=== PATIENT | male | born 1960 | race Two or more races ===

== ENCOUNTER 2016-07-01 19:44 | Inpatient (IN) | payer BC, OTHER ==
[~2016-07-01] VITALS: Ht 162.6 cm; Wt 58.0 kg
[2016-07-01] MEDS ORDERED: ASPIRIN 325 MG TAB PO STA (23:01)
[2016-07-01] MEDS ORDERED: NITROGLYCERIN 2% 1 GM OINT PKT TD STA (23:01)
[2016-07-01] MEDS ORDERED: morphine 2 MG INJ IV STA (23:01)
[2016-07-01] MEDS ORDERED: ONDANSETRON 4 MG INJ IV STA (23:01)
[2016-07-01 23:30] LABS: ADD SCAN DIFF NO
[2016-07-01 23:32] LABS: BASOPHIL # 0.1 10^3/ul (0.0-0.1); BASOPHILS % 0.6 % (0.0-2.0); EOSINOPHILS # 0.4 10^3/ul (0.0-0.5); EOSINOPHILS % 3.9 % (0.0-7.0); HEMATOCRIT 45.7 % (42.0-52.0); LYMPHOCYTES # 3.1 10^3/ul (0.8-2.9); LYMPHOCYTES % 28.8 % (15.0-51.0); MEAN CORPUSCULAR HEMOGLOBIN 32.3 pg (29.0-33.0); MEAN CORPUSCULAR HGB CONC 32.8 g/dl (32.0-37.0); MEAN CORPUSCULAR VOLUME 98.3 fl (82.0-101.0); MEAN PLATELET VOLUME 10.1 fl (7.4-10.4); MONOCYTES % 9.5 % (0.0-11.0); NEUTROPHIL # 6.1 10^3/ul (1.6-7.5); NEUTROPHILS % 56.8 % (39.0-77.0); PLATELET COUNT 294 10^3/UL (140-415); RED BLOOD COUNT 4.65 10^6/ul (4.70-6.10); RED CELL DISTRIBUTION WIDTH 13.8 % (11.5-14.5); WHITE BLOOD COUNT 10.7 10^3/ul (4.8-10.8)
--- NOTE | 2016-07-01 23:34 | ERA ---
ER Documentation Chief Complaint Date/Time DATE: 07/01/16 TIME: 23:31 Chief Complaint chest pain , h/o stemi admitted at [facility] 05/11/16 HPI Patient is a 55-year-old male who speaks only Upper Sorbian. We have attempted to get a cell tender on the phone, the iPad, and the computer. Unfortunately we have been unsuccessful. Nobody here speaks Upper Sorbian. His does not speak Greek and neither does he. He checked in with chest pain. This is the limitation of what we can gather. He hands me some paperwork that states he had a STEMI in May. This is the only information I have at this time. ROS All systems reviewed and are negative except as per history of present illness. Allergies Allergies: Coded Allergies: No Known Allergy (Unverified , 07/01/16) Physical Exam Vitals Vital Signs Date Time Temp Pulse Resp B/P Pulse Ox O2 Delivery O2 Flow Rate FiO2 07/02/16 01:00 59 16 118/77 98 Room Air 07/01/16 19:54 98.1 81 20 159/72 97 Physical Exam Const: [] Well-developed well-nourished male sitting on the bed no acute distress Head: Atraumatic normocephalic Eyes: Normal Conjunctiva ENT: Normal External Ears, Nose and Mouth. Neck: Full range of motion..~ No meningismus. Resp: Clear to auscultation bilaterally, no tenderness palpation of the chest wall Cardio: Regular rate and rhythm, no murmurs Abd: Soft, non tender, non distended. Normal bowel sounds Skin: No petechiae or rashes Back: No midline or flank tenderness Ext: No cyanosis, or edema Neur: Awake and alert, moves all extremities equally, GCS of 15 Psych: Normal Mood and Affect Result Diagram: 07/01/16225407/01/162254 Results 24 hrs Laboratory Tests Test 07/01/16 22:55 White Blood Count 10.710^3/ul Red Blood Count 4.6510^6/ul Hemoglobin 15.0g/dl Hematocrit 45.7% Mean Corpuscular Volume 98.3fl Mean Corpuscular Hemoglobin 32.3pg Mean Corpuscular Hemoglobin Concent 32.8g/dl Red Cell Distribution Width 13.8% Platelet Count 48811^3/UL Mean Platelet Volume 10.1fl Neutrophils % 56.8% Lymphocytes % 28.8% Monocytes % 9.5% Eosinophils % 3.9% Basophils % 0.6% Nucleated Red Blood Cells % 0.0/100WBC Neutrophils # 6.110^3/ul Lymphocytes # 3.110^3/ul Monocytes # 1.010^3/ul Eosinophils # 0.410^3/ul Basophils # 0.110^3/ul Nucleated Red Blood Cells # 0.010^3/ul Prothrombin Time 11.7Sec Prothrombin Time Ratio 0.9 INR International Normalized Ratio 0.86 Activated Partial Thromboplast Time 32.9Sec Sodium Level 139mmol/L Potassium Level 4.1mmol/L Chloride Level 100mmol/L Carbon Dioxide Level 31mmol/L Anion Gap 12 Blood Urea Nitrogen 18mg/dl Creatinine 0.88mg/dl Glucose Level 94mg/dl Calcium Level 9.8mg/dl Total Bilirubin 0.1mg/dl Direct Bilirubin 0.00mg/dl Indirect Bilirubin 0.1mg/dl Aspartate Amino Transf (AST/SGOT) 24IU/L Alanine Aminotransferase (ALT/SGPT) 29IU/L Alkaline Phosphatase 91IU/L Troponin I < 0.012ng/ml B-Type Natriuretic Peptide 51PG/ML Total Protein 7.8g/dl Albumin 4.5g/dl Globulin 3.30g/dl Albumin/Globulin Ratio 1.36 Current Medications Medications (Trade) Dose Ordered Sig/Jayne Route PRN Reason Start Time Stop Time Status Last Admin Dose Admin Aspirin (Aspirin) 325 mg ONCE STAT PO 07/01/16 23:01 07/01/16 23:04 DC 07/01/16 23:38 Nitroglycerin (Nitroglycerin 2% Oint) 0.5 inch ONCE STAT TD 07/01/16 23:01 07/01/16 23:04 DC 07/01/16 23:37 Morphine Sulfate (morphine) 2 mg ONCE STAT IV 07/01/16 23:01 07/01/16 23:04 DC Ondansetron HCl (Zofran Inj) 4 mg ONCE STAT IV 07/01/16 23:01 07/01/16 23:04 DC Tramadol HCl (Ultram) 100 mg ONCE ONCE PO 07/02/16 01:30 07/02/16 01:31 DC 07/02/16 01:24 Procedures/MDM Differential includes but is not limited to chest pain, angina, chest wall pain , coronary disease EKG: Rate/Rhythm: Normal Sinus Rhythm at 75 bpm with no evidence of acute ischemia, arrhythmia, or ectopy noted QRS, ST, T-waves: No changes consistent w/ acute ischemia Impression: No evidence of ischemia or arrhythmia EKG: Rate/Rhythm: Normal Sinus Rhythm at 70 bpm without any evidence of acute ischemia, arrhythmia, or ectopy noted, this is a repeat EKG QRS, ST, T-waves: No changes consistent w/ acute ischemia Impression: No evidence of ischemia or arrhythmia Chest x-ray does not reveal any acute cardiopulmonary process 0230: Patient's pain is much improved. Given his recent ID I feel is most prudent to have him admitted for observation with serial enzymes. Departure Diagnosis: Primary Impression: Chest pain Qualified Code: R07.2 - Precordial pain Additional Impression: Coronary artery disease Qualified Code: I25.119 - Coronary artery disease involving cachil dehe coronary artery of cachil dehe heart with angina pectoris Condition: PAGE Mon Jul 01, 2016 23:34
--- NOTE | 2016-07-01 23:40 | RADRPT ---
PROCEDURE: XR Chest. CLINICAL INDICATION: Chest pain. TECHNIQUE: Single frontal view of the chest was obtained COMPARISON: None FINDINGS: The heart and mediastinum are within normal limits. Mild left lung base atelectasis. Right lung is clear. There is no pleural effusion or pneumothorax. IMPRESSION: Mild left lung base atelectasis. RPTAT: [facility] Physician Vita Date Time Electronically viewed and signed by Physician Vita on 07/01/2016 23:40 RS/
[2016-07-01 23:44] LABS: INR 0.86; PROTIME 11.7 Sec (12.2-14.2); PT RATIO 0.9
[2016-07-01 23:45] LABS: PARTIAL THROMBOPLASTIN TIME 32.9 Sec (25.0-35.0)
[2016-07-01 23:56] LABS: ALBUMIN 4.5 g/dl (3.3-4.9); CHLORIDE 100 mmol/L (97-110); POTASSIUM 4.1 mmol/L (3.5-5.1); SODIUM 139 mmol/L (135-144)
[2016-07-01 23:58] LABS: CREATININE 0.88 mg/dl (0.61-1.24)
[2016-07-01 23:59] LABS: ALANINE AMINOTRANSFERASE 29 IU/L (13-69); ALBUMIN/GLOBULIN RATIO 1.36; ALKALINE PHOSPHATASE 91 IU/L (42-121); ANION GAP 12 (8-16); ASPARTATE AMINO TRANSFERASE 24 IU/L (15-46); BILIRUBIN,INDIRECT 0.1 mg/dl (0-1.1); BILIRUBIN,TOTAL 0.1 mg/dl (0.2-1.3); BLOOD UREA NITROGEN 18 mg/dl (7-20); CALCIUM 9.8 mg/dl (8.4-10.2); CARBON DIOXIDE 31 mmol/L (21-31); GLUCOSE 94 mg/dl (70-220); TOTAL PROTEIN 7.8 g/dl (6.1-8.1)
[2016-07-02] VITALS (9 sets, daily range): BP systolic 90–103; BP diastolic 51–63; PULSE 53–67; RESP 17–18; Ht 162.6 cm; Wt 58.0 kg
[2016-07-02 00:06] LABS: B-TYPE NATRIURETIC PEPTIDE 51 PG/ML (0-125)
[2016-07-02 00:12] LABS: TROPONIN-I < 0.012 ng/ml (0.00-0.12)
[2016-07-02] MEDS ORDERED: traMADol 50 MG TAB PO ONE (01:30)
[2016-07-02] MEDS ORDERED: ONDANSETRON 4 MG INJ IV PRN ×2 (03:00→05:00)
[2016-07-02] MEDS ORDERED: ACETAMINOPHEN 325 MG TAB PO PRN (03:00)
[2016-07-02] MEDS ORDERED: ASPI81TA3 PO (03:54)
[2016-07-02] MEDS ORDERED: CLOP75TA27 PO (03:54)
[2016-07-02] MEDS ORDERED: ATOR80TA75 PO (03:54)
[2016-07-02] MEDS ORDERED: morphine 4 MG/ML VIAL IV PRN (05:00)
--- NOTE | 2016-07-02 07:50 | HP ---
DATE OF ADMISSION: 07/02/2016 TIME SEEN: 4 a.m. CHIEF COMPLAINT: Chest pain. HISTORY OF PRESENT ILLNESS: The patient is a 55-year-old male with a history of coronary artery dis ease and STEMI in May of this year at [facility] who presented to the emergency depart ment with a chief complaint of chest pain. The patient is Armenian-speaking only and as such, gatheri ng information has been difficult. Attempt through education site manager line was unsuccessful. The patient d id, however, sign paperwork that shows that he had a STEMI in May at [facility]. When he presented to the ER here, his blood pressure 159/72, heart rate 81, respiratory rate 20, tem perature 98.1, oxygen saturation 97% on room air. Laboratory value shows CBC and CMP are within nor mal limits. Chest x-ray shows mild left lung base atelectasis. EKG: Normal sinus rhythm with a rate of [address] elevation or depression, and first troponin is negative. He was given nitroglycerin, aspirin , Zofran, and tramadol. REVIEW OF SYSTEMS: Unable to fully assess. PAST MEDICAL HISTORY: As per HPI. PAST SURGICAL HISTORY: He had a cardiac catheterization in May of this year at [facility]. SOCIAL HISTORY: No alcohol or tobacco. ALLERGIES: NO KNOWN DRUG ALLERGIES. HOME MEDICATIONS: 1. Plavix 2. Lipitor. 3. Aspirin. PHYSICAL EXAMINATION: VITAL SIGNS: Stable except a heart rate in the 50s. GENERAL: No acute distress. HEENT: No obvious head deformity. Pupils are reactive to light. CARDIOVASCULAR: Bradycardic with irregular rhythm. LUNGS: Clear anteriorly. ABDOMEN: Soft, nontender, nondistended. Positive bowel sounds. EXTREMITIES: No edema. NEUROLOGIC: No focal deficit. LABORATORY DATA: CBC and CMP are within normal limits. First troponin negative. IMAGING: Chest x-ray: Mild left lung base atelectasis. IMPRESSION: 1. Chest pain, rule out acute coronary syndrome. 2. History of a ST-elevation myocardial infarction in May of this year, status post percutaneo us coronary intervention at [facility]. PLAN: Continue telemetry monitoring. Will trend his troponin. Will obtain a 2-D echo. We will att empt to get additional medical records from [facility] and also will attempt to reach famil y members to get more information. In the meantime, he will be continued with his home Plavix, aspi rin, Lipitor. Heart rate in the 50s, so will not start a beta santiago. He will be provided as-need ed nitroglycerin and morphine. Further workup and management per clinical course. Dictated By: JEANINE CERVANTES/JOHNATHAN Conf#: [id number] DID#: [id number]
[2016-07-02] MEDS ORDERED: ASPIRIN 81 MG TAB PO SCH (09:00)
[2016-07-02] MEDS ORDERED: CLOPIDOGREL 75 MG TAB PO SCH (09:00)
[2016-07-02 10:08] LABS: ADD SCAN DIFF NO
[2016-07-02 10:13] LABS: BASOPHILS % 0.7 % (0.0-2.0); EOSINOPHILS # 0.2 10^3/ul (0.0-0.5); EOSINOPHILS % 3.7 % (0.0-7.0); HEMATOCRIT 38.9 % (42.0-52.0); HEMOGLOBIN 12.9 g/dl (14.0-18.0); LYMPHOCYTES # 2.1 10^3/ul (0.8-2.9); LYMPHOCYTES % 34.8 % (15.0-51.0); MEAN CORPUSCULAR HEMOGLOBIN 32.5 pg (29.0-33.0); MEAN CORPUSCULAR HGB CONC 33.2 g/dl (32.0-37.0); MEAN PLATELET VOLUME 10.1 fl (7.4-10.4); MONOCYTE # 0.7 10^3/ul (0.3-0.9); MONOCYTES % 12.5 % (0.0-11.0); NEUTROPHIL # 2.9 10^3/ul (1.6-7.5); NEUTROPHILS % 48.1 % (39.0-77.0); PLATELET COUNT 222 10^3/UL (140-415); RED BLOOD COUNT 3.97 10^6/ul (4.70-6.10); RED CELL DISTRIBUTION WIDTH 13.9 % (11.5-14.5); WHITE BLOOD COUNT 5.9 10^3/ul (4.8-10.8)
[2016-07-02 10:21] LABS: ALBUMIN 3.5 g/dl (3.3-4.9)
[2016-07-02 10:22] LABS: POTASSIUM 3.7 mmol/L (3.5-5.1)
[2016-07-02 10:24] LABS: CREATININE 0.77 mg/dl (0.61-1.24)
[2016-07-02 10:25] LABS: ALBUMIN/GLOBULIN RATIO 1.34; BILIRUBIN,INDIRECT 0.2 mg/dl (0-1.1); BILIRUBIN,TOTAL 0.2 mg/dl (0.2-1.3); CALCIUM 9.2 mg/dl (8.4-10.2); CHOL/HDL RATIO 2.7 RATIO; TOTAL PROTEIN 6.1 g/dl (6.1-8.1)
[2016-07-02 10:35] LABS: CK-MB 0.26 ng/ml (0.0-2.4)
[2016-07-02 10:42] LABS: TROPONIN-I < 0.012 ng/ml (0.00-0.12)
[2016-07-02 10:52] LABS: CREATINE KINASE 43 IU/L (23-200)
[2016-07-02 13:26] LABS: THYROID STIMULATING HORMONE 2.02 MIU/L (0.465-4.680)
--- NOTE | 2016-07-02 14:38 | PN ---
Date/Time of Note Date/Time of Note DATE: 07/02/16 TIME: 14:11 Assessment/Plan VTE Prophylaxis VTE Prophylaxis Intervention: other Lines/Catheters IV Catheter Type (from Nrsg): Saline Lock Assessment/Plan Assessment/Plan 1. Chest pain, musculoskeletal, follow up with PCP Author: William Cr MD Service: Cardiac Cath Author Type: Physician Filed: 05/11/2016 21:11 Note Time: 05/11/2016 20:28 Status: Signed Cath Lab Radiological Technologist: William Cr MD (Physician) Procedure Orders: 1. CV Cardiac Procedure [[id number]] ordered by William Cr MD at 05/11/16 [address] [place] [address] Patient Name: Age: : Medical Record Number: Date of Admission: Admitting Physician: Allen Alfaro 55 y.o. 1960 [id number] 05/11/2016 William Cr MD CARDIAC CATHETERIZATION Date of Procedure: 05/11/2016 Loan Approver and Supervising Physician: William Cr MD, [facility] Pre-operative diagnosis: 1. Chest pain 2. EKG changes concerning for inferior wall myocardial infarction Post-operative diagnosis: 1. Nonobstructive coronary artery disease 2. Normal left ventricular end diastolic pressure 3. No aortic stenosis Name of Procedures: 1. Left heart catheterization 2. Coronary angiography 3. Bilateral iliac artery angiography 4. Right and left femoral arteriography 5. Unsuccessful Perclose hemostasis device deployment 6. Supervision and interpretation of coronary angiography Medications: Fentanyl 50 mcg iv Versed 1 mg iv Heparin 7,000 units iv Lidocaine 1% 10 cc bilateral groins Indication for Procedure: Chest pain and EKG changes concerning for inferior wall myocardial infarction Description of Procedure: Following informed consent, the patient was brought to the cardiac catheterization laboratory where the right groin was prepped in the usual, sterile fashion. After local anesthesia was applied, with 10 cc of 1% lidocaine , the right common femoral artery was cannulated using the modified Seldinger technique with a 4F microaccess kit. A 6F Terumo sheath was introduced in the right common femoral artery, and aspirated and flushed with heparinized saline. Through the arterial sheath a 6F JL4 catheter was advanced over a wire to the root of the aorta and engaged the left main coronary artery. Selective left coronary angiography was performed using standard projections. The catheter was then removed and a 6F IM with side holes guide catheter was advanced over a wire to the root of the aorta and into the left ventricle. Left ventricular pressures were obtained. The catheter was then pulled back and maneuvered to engage the right coronary artery. Selective right coronary angiography was performed using standard projections. The catheter was then removed. A 6F JR4 catheter was then advanced over a wire to the root of the aorta and engaged the right coronary artery. Selective right coronary angiography was performed using a standard projection. The catheter was then removed. The sheath was then removed, and a Perclose device was then deployed using standard techniques, but there was no evidence of a distal pulse. The left groin was then anesthetized with 10 cc of 1% lidocaine, and the left common femoral artery was cannulated using a 5F Terumo sheath. A 4F UF catheter was advanced over a wire to the distal abdominal aorta. Bilateral iliac artery angiography was performed using a standard projection. The catheter was then removed, and the left femoral artery sheath was left in place to be pulled after surgery. Coronary Angiography Tribal Vessels: Dominance: Right Left Main artery: The left main artery arises from the left aortic sinus. It is a short vessel with no angiographically significant disease. Left Anterior Descending artery: The proximal segment is 3.5 mm in diameter and has no angiographically significant disease. The distal vessel is of large size with mild diffuse disease. There is a myocardial bridge in the distal LAD resulting in a 30% stenosis. The first diagonal artery is 2.5 mm in diameter and has mild diffuse disease. The second diagonal artery is 2 mm in diameter and has an ostial lesion resulting in a 30% stenosis. Left Circumflex artery: The proximal segment is 3.5 mm in diameter and has 30- 40% stenosis. There is a 2 mm first obtuse marginal artery with an ostial 30% stenosis. There is a 3 mm second obtuse marginal artery with no angiographically significant disease. The distal left circumflex artery is 2.25 mm in diameter and has an ostial 40% stenosis with mild diffuse disease, and supplies a branching left posterolateral branch artery with no angiographically significant. Right Coronary artery: The proximal segment is 2.25 mm in diameter and has no angiographically significant disease. The distal vessel is of small size with mild diffuse disease. Iliac Artery Angiography Right common iliac artery - 7 mm in diameter with an ostial 40-50% stenosis. Right external iliac artery - 6 mm in diameter with a proximal total occlusion Right internal iliac artery - 5 mm in diameter with mild diffuse disease Left common iliac artery - 7 mm in diameter and has a mid 30-40% stenosis. Left external iliac artery - 7 mm in diameter with a proximal 30-40% stenosis. Left internal iliac artery - 5 mm in diameter with mild diffuse disease. Hemodynamics: Left Heart Catheterization: Opening aortic pressure: 135/68 mmHg LV Pressure at baseline: 149 mmHg, baseline LVEDP 13 mmHg Systolic pressure in LV prior to pullback: 140 mmHg Systolic pressure in Aorta after pullback: 135 mmHg There was no significant gradient across the aortic valve. Final aortic pressure: 103/64 mmHg Right and Left Common Femoral Arteriography: Mild diffuse disease initially noted. Complications: Unsuccessful Perclose deployment with right external iliac artery occlusion. Total amount of contrast: 70 cc Omnipaque contrast. Total fluoroscopic time: 4.5 min Summary: 1. Nonobstructive coronary artery disease. 2. Normal left ventricular end diastolic pressure. 3. No aortic stenosis. 4. Acute right external iliac artery occlusion. Recommendations: 1. Recommend aspirin 81 mg po daily lifelong. 2. Smoking cessation strongly encouraged. 3. Urgent vascular surgery consultation for surgical revascularization of the right external iliac artery. William Cr MD, FACC Subjective 24 Hr Interval Summary Free Text/Dictation no chest chest pain today Exam/Review of Systems Vital Signs Vitals Vital Signs Date Time Temp Pulse Resp B/P Pulse Ox O2 Delivery O2 Flow Rate FiO2 07/02/16 12:18 98.0 67 18 91/58 98 07/02/16 03:00 Room Air Exam Constitutional: alert, oriented, well developed Psych: nl mood/affect, no complaints Head: atraumatic, normocephalic Eyes: EOMI, nl conjunctiva, nl lids ENMT: nl external ears & nose, nl lips & teeth, nl nasal mucosa & septum Neck: non-tender, supple Respiratory: clear to auscultation, normal air movement, No congested cough, No crackles/rales, No diminished breath sounds, No intercostal retraction, No labored breathing, No other, No respirations, No tactile fremitus, No wheezing Cardiovascular: nl pulses, regular rate and rhythm, No S3, No S4, No bruits, No diastolic murmur, No edema, No gallop, No irregular rhythm, No jugular venous distention (JVD), No murmurs/extra sounds, No other, No rub, No systolic murmur Gastrointestinal: nl liver, spleen, non-tender, soft, No ascites, No bowel sounds, No distended, No firm, No hepatomegaly, No mass , No other, No rebound or guarding, No splenomegaly, No surgical scars, No tender Musculoskeletal: nl extremities to inspection Extremities: normal pulses, No calf tenderness, No clubbing, No cyanosis, No edema, No other, No palpable cord, No pitting pedal edema, No tenderness Neurological: SANDBLASTER PAINT SPRAYER II-XII intact, nl mental status, nl speech, nl strength, No DTR's symmetric, No confused, No focal weakness, No lethargic, No numbness , No other, No reflexes, No unresponsive Skin: nl turgor Lymph: nl lymph nodes Results Result Diagram: 07/02/16 0932 07/02/16 0932 Results 24 hrs Laboratory Tests Test 07/01/16 22:55 07/02/16 09:32 White Blood Count 10.7 5.9 # Red Blood Count 4.65 L 3.97 L Hemoglobin 15.0 12.9 L Hematocrit 45.7 38.9 L Mean Corpuscular Volume 98.3 98.0 Mean Corpuscular Hemoglobin 32.3 32.5 Mean Corpuscular Hemoglobin Concent 32.8 33.2 Red Cell Distribution Width 13.8 13.9 Platelet Count 294 222 # Mean Platelet Volume 10.1 10.1 Neutrophils % 56.8 48.1 Lymphocytes % 28.8 34.8 Monocytes % 9.5 12.5 H Eosinophils % 3.9 3.7 Basophils % 0.6 0.7 Nucleated Red Blood Cells % 0.0 0.0 Neutrophils # 6.1 2.9 Lymphocytes # 3.1 H 2.1 Monocytes # 1.0 H 0.7 Eosinophils # 0.4 0.2 Basophils # 0.1 0.0 Nucleated Red Blood Cells # 0.0 0.0 Prothrombin Time 11.7 L Prothrombin Time Ratio 0.9 INR International Normalized Ratio 0.86 Activated Partial Thromboplast Time 32.9 Sodium Level 139 139 Potassium Level 4.1 3.7 Chloride Level 100 103 Carbon Dioxide Level 31 30 Anion Gap 12 10 Blood Urea Nitrogen 18 19 Creatinine 0.88 0.77 Glucose Level 94 133 Calcium Level 9.8 9.2 Total Bilirubin 0.1 L 0.2 Direct Bilirubin 0.00 0.00 Indirect Bilirubin 0.1 0.2 Aspartate Amino Transf (AST/SGOT) 24 18 Alanine Aminotransferase (ALT/SGPT) 29 25 Alkaline Phosphatase 91 70 Troponin I < 0.012 < 0.012 B-Type Natriuretic Peptide 51 Total Protein 7.8 6.1 # Albumin 4.5 3.5 # Globulin 3.30 H 2.60 Albumin/Globulin Ratio 1.36 1.34 Hemoglobin A1c 5.3 Creatine Kinase 43 Creatine Kinase Index 0.6 Creatinine Kinase MB (Mass) 0.26 Triglycerides Level 104 Cholesterol Level 113 LDL Cholesterol, Calculated 51 HDL Cholesterol 41 Cholesterol/HDL Ratio 2.7 Thyroid Stimulating Hormone (TSH) 2.020 Medications Medications Current Medications Morphine Sulfate (morphine) 3 mg Q4H PRN IV pain; Start 07/02/16 at 05:00 Ondansetron HCl (Zofran Inj) 4 mg Q6H PRN IV NAUSEA AND/OR VOMITING; Start at 05:00 Aspirin (Aspirin) 81 mg DAILY PO Last administered on 07/02/16 08:47; Admin Dose 81 MG; Start 07/02/16 at 09:00 Atorvastatin Calcium (Lipitor) 80 mg QHS PO ; Start 07/02/16 at 21:00 Clopidogrel Bisulfate (plaVIX) 75 mg DAILY PO Last administered on 07/02/16 08 :47; Admin Dose 75 MG; Start 07/02/16 at 09:00 CINDY CROWDER MD Jul 02, 2016 14:21
--- NOTE | 2016-07-02 14:47 | DS ---
Date/Time of Note Date/Time of Note DATE: 07/02/16 TIME: 14:38 Discharge Summary Admission/Discharge Info Admit Date/Time Jul 02, 2016 at 02:47 Discharge Date/Time Final Diagnosis 1. Chest pain, musculoskeletal, follow up with PCP 2. Nonobstructive coronary artery disease, on aspirin, plavix and statin Patient Condition: Stable Hospital Course 55 years old male who had coronary angiography in 05/2016 in [facility] that revealed only 20-505 lesions, medical management was recommended. Patient came in with intermitted right sided chest pain, aching, squeezing like, lasts several hours. No chest pain today. Troponin negative, and so ECG. Chest pain is considered musculoskeletal, patient is instructed to take tynelol prn and follow up with PCP. He will continue aspirin, plavix and statin. Home Meds Reported Medications Atorvastatin* (Atorvastatin*) 80 Mg Tablet, 80 MG PO QHS, #30 TAB 07/02/16 Aspirin* (Aspirin* Chew) 81 Mg Tab.chew, 81 MG PO DAILY, TAB.CHEW 07/02/16 Clopidogrel Bisulfate (Clopidogrel) 75 Mg Tablet, 75 MG PO DAILY, #30 TAB 07/02/16 Follow-up Plan follow up with PCP in one week Pending Labs Laboratory Tests Test 07/01/16 22:55 07/02/16 09:32 White Blood Count 10.710^3/ul (4.8-10.8) 5.910^3/ul (4.8-10.8) Red Blood Count 4.6510^6/ul (4.70-6.10) 3.9710^6/ul (4.70-6.10) Hemoglobin 15.0g/dl (14.0-18.0) 12.9g/dl (14.0-18.0) Hematocrit 45.7% (42.0-52.0) 38.9% (42.0-52.0) Mean Corpuscular Volume 98.3fl (82.0-101.0) 98.0fl (82.0-101.0) Mean Corpuscular Hemoglobin 32.3pg (29.0-33.0) 32.5pg (29.0-33.0) Mean Corpuscular Hemoglobin Concent 32.8g/dl (32.0-37.0) 33.2g/dl (32.0-37.0) Red Cell Distribution Width 13.8% (11.5-14.5) 13.9% (11.5-14.5) Platelet Count 53395^3/UL (140-415) 83141^3/UL (140-415) Mean Platelet Volume 10.1fl (7.4-10.4) 10.1fl (7.4-10.4) Neutrophils % 56.8% (39.0-77.0) 48.1% (39.0-77.0) Lymphocytes % 28.8% (15.0-51.0) 34.8% (15.0-51.0) Monocytes % 9.5% (0.0-11.0) 12.5% (0.0-11.0) Eosinophils % 3.9% (0.0-7.0) 3.7% (0.0-7.0) Basophils % 0.6% (0.0-2.0) 0.7% (0.0-2.0) Nucleated Red Blood Cells % 0.0/100WBC (0.0-0.0) 0.0/100WBC (0.0-0.0) Neutrophils # 6.110^3/ul (1.6-7.5) 2.910^3/ul (1.6-7.5) Lymphocytes # 3.110^3/ul (0.8-2.9) 2.110^3/ul (0.8-2.9) Monocytes # 1.010^3/ul (0.3-0.9) 0.710^3/ul (0.3-0.9) Eosinophils # 0.410^3/ul (0.0-0.5) 0.210^3/ul (0.0-0.5) Basophils # 0.110^3/ul (0.0-0.1) 0.010^3/ul (0.0-0.1) Nucleated Red Blood Cells # 0.010^3/ul (0.0-0.0) 0.010^3/ul (0.0-0.0) Prothrombin Time 11.7Sec (12.2-14.2) Prothrombin Time Ratio 0.9 INR International Normalized Ratio 0.86 Activated Partial Thromboplast Time 32.9Sec (25.0-35.0) Sodium Level 139mmol/L (135-144) 139mmol/L (135-144) Potassium Level 4.1mmol/L (3.5-5.1) 3.7mmol/L (3.5-5.1) Chloride Level 100mmol/L (97-110) 103mmol/L (97-110) Carbon Dioxide Level 31mmol/L (21-31) 30mmol/L (21-31) Anion Gap 12 (8-16) 10 (8-16) Blood Urea Nitrogen 18mg/dl (7-20) 19mg/dl (7-20) Creatinine 0.88mg/dl (0.61-1.24) 0.77mg/dl (0.61-1.24) Glucose Level 94mg/dl (70-220) 133mg/dl (70-220) Calcium Level 9.8mg/dl (8.4-10.2) 9.2mg/dl (8.4-10.2) Total Bilirubin 0.1mg/dl (0.2-1.3) 0.2mg/dl (0.2-1.3) Direct Bilirubin 0.00mg/dl (0.00-0.20) 0.00mg/dl (0.00-0.20) Indirect Bilirubin 0.1mg/dl (0-1.1) 0.2mg/dl (0-1.1) Aspartate Amino Transf (AST/SGOT) 24IU/L (15-46) 18IU/L (15-46) Alanine Aminotransferase (ALT/SGPT) 29IU/L (13-69) 25IU/L (13-69) Alkaline Phosphatase 91IU/L (42-121) 70IU/L (42-121) Troponin I < 0.012ng/ml (0.00-0.12) < 0.012ng/ml (0.00-0.12) B-Type Natriuretic Peptide 51PG/ML (0-125) Total Protein 7.8g/dl (6.1-8.1) 6.1g/dl (6.1-8.1) Albumin 4.5g/dl (3.3-4.9) 3.5g/dl (3.3-4.9) Globulin 3.30g/dl (1.3-3.2) 2.60g/dl (1.3-3.2) Albumin/Globulin Ratio 1.36 1.34 Hemoglobin A1c 5.3% (0-5.9) Creatine Kinase 43IU/L (23-200) Creatine Kinase Index 0.6 Creatinine Kinase MB (Mass) 0.26ng/ml (0.0-2.4) Triglycerides Level 104mg/dl (0-149) Cholesterol Level 113mg/dl (100-200) LDL Cholesterol, Calculated 51mg/dl HDL Cholesterol 41mg/dl (28-71) Cholesterol/HDL Ratio 2.7RATIO Thyroid Stimulating Hormone (TSH) 2.020MIU/L (0.465-4.680) CINDY CROWDER MD Jul 02, 2016 14:47
[2016-07-02] MEDS ORDERED: PANTOPRAZOLE (EC) 40 MG TAB PO SCH (15:30)
[2016-07-02] MEDS ORDERED: ATORVASTATIN 80 MG TAB PO SCH (21:00)
== END 2016-07-02 18:19 | disposition home or self-care (01) | DRG 313 ==
LOC: E/R 19:44 → MS4 07-02 02:47
PROVIDERS: ADMIT Internal Medicine; ATTEND Internal Medicine
DX: R07.89 Other chest pain (principal); I25.10 Atherosclerotic heart disease of native coronary artery without angina pectoris; Z86.73 Personal history of transient ischemic attack (TIA), and cerebral infarction without residual deficits; Z98.61 Coronary angioplasty status; Z79.02 Long term (current) use of antithrombotics/antiplatelets
CPT/HCPCS: 36415; 71010; 80053; 80061; 82550; 82553; 83036; 83880; 84443; 84484; 85025; 85610; 85730; 93005; G0378

== ENCOUNTER 2016-12-05 09:30 | Emergency (ER) | payer BC ==
[~2016-12-05] VITALS: Ht 165.1 cm; Wt 58.5 kg
[~2016-12-05 09:30] MED LIST: ASPI81TA3 PO; ATOR80TA75 PO; CLOP75TA27 PO
[2016-12-05 09:51] VITALS: Ht 165.1 cm; Wt 58.5 kg
[2016-12-05] MEDS ORDERED: morphine 4 MG/ML VIAL IV STA (10:25)
[2016-12-05] MEDS ORDERED: SOD CHLORIDE 0.9% 500 ML IV STA (10:25)
[2016-12-05] MEDS ORDERED: ONDANSETRON 4 MG INJ IV STA (10:25)
--- NOTE | 2016-12-05 10:56 | RADRPT ---
PROCEDURE: CT Abdomen and Pelvis without contrast. CLINICAL INDICATION: Abdominal pain. Bloody stool. TECHNIQUE: CT scan of the abdomen and pelvis without contrast was performed. The patient was scann ed without intravenous contrast. Coronal and sagittal reformatted images were obtained from the axi al source images. Use of iterative reconstruction technique was employed. Images were reviewed on a high-resolution PACS workstation. images. The calculated radiation dose measures 246.98 mGy centimet ers. The CTDI measures 4.58 mGy. One or more of the following dose reduction techniques were used: - Automated exposure control. - Adjustment of the mA and/or kV according to patient size . - Use of iterative reconstruction technique. Images were reviewed on a high-resolution PACS workstation COMPARISON: None. FINDINGS: CT abdomen: The lung bases are clear. The heart size is normal, without pericardial thickening or effusion. Th e liver is normal in size and density without focal mass or intrahepatic biliary dilatation. The sp valerie is normal in size and homogeneous in density. The stomach is partially collapsed, but is gross ly unremarkable. The pancreas as visualized is normal. The gallbladder and biliary tree are unrem arkable and there is no evidence for biliary dilatation. The adrenal glands are symmetric and gilmar l. The kidneys are symmetrically unremarkable as well. No renal calculus or obstructive uropathy o r mass lesion is seen. The aorta is of normal caliber. Aortic vascular calcifications are present. There is no retroperit tinajero lymphadenopathy. The debbi hepatis region is clear. The bowel and mesentery, as visualized, are equally unremarkable. CT pelvis: The small bowel loops situated within the pelvis are unremarkable. The pelvic organs are normal. T he pelvic sidewalls and inguinal regions are clear. The sigmoid colon and rectum are remarkable for sigmoid diverticulosis. No mass, lymphadenopathy, or free fluid is seen. No acute inflammation is seen. Surgical clips are seen in the right inguinal region. The surrounding osseous structures are remarkable for degenerative spondylosis of the spine. No ost eolytic or osteoblastic lesion is detected. IMPRESSION: 1. No evidence for nephroureterolithiasis or acute appendicitis on this noncontrast examination. 2. Sigmoid diverticulosis without evidence for diverticulitis. 3. Atherosclerotic vascular calcifications. 4. Surgical clips seen in the right inguinal region. RPTAT: QQ .Anshu Hernadez MD, MD Date Time Electronically viewed and signed by .Anshu Hernadez MD, MD on 12/05/2016 10:56 .d/
--- NOTE | 2016-12-05 10:58 | RADRPT ---
PROCEDURE: XR Chest. CLINICAL INDICATION: Chest pain TECHNIQUE: Single frontal chest x-ray. COMPARISON: None. FINDINGS: There is no focal consolidation, pleural effusion or pneumothorax. The aorta and cardiac silhouette are within normal limits. Aortic arch calcifications are seen. The osseous structures are intact. IMPRESSION: 1. Negative frontal chest. 2. Atherosclerosis. RPTAT: AA .Anshu Hernadez MD, MD Date Time Electronically viewed and signed by .Anshu Hernadez MD, MD on 12/05/2016 10:57 .d/
[2016-12-05 11:09] LABS: BASOPHIL # 0.1 10^3/ul (0.0-0.1); BASOPHILS % 0.8 % (0.0-2.0); EOSINOPHILS # 0.2 10^3/ul (0.0-0.5); EOSINOPHILS % 2.5 % (0.0-7.0); HEMATOCRIT 47.2 % (42.0-52.0); LYMPHOCYTES # 1.8 10^3/ul (0.8-2.9); MEAN CORPUSCULAR HEMOGLOBIN 33.2 pg (29.0-33.0); MEAN CORPUSCULAR HGB CONC 33.9 g/dl (32.0-37.0); MEAN CORPUSCULAR VOLUME 97.9 fl (82.0-101.0); MONOCYTE # 0.6 10^3/ul (0.3-0.9); MONOCYTES % 9.3 % (0.0-11.0); NEUTROPHILS % 57.2 % (39.0-77.0); PLATELET COUNT 225 10^3/UL (140-415); RED BLOOD COUNT 4.82 10^6/ul (4.70-6.10); RED CELL DISTRIBUTION WIDTH 14.1 % (11.5-14.5); WHITE BLOOD COUNT 6.1 10^3/ul (4.8-10.8)
[2016-12-05 11:25] LABS: ALANINE AMINOTRANSFERASE 28 IU/L (13-69); ALBUMIN 4.4 g/dl (3.3-4.9); ALBUMIN/GLOBULIN RATIO 1.41; ALKALINE PHOSPHATASE 67 IU/L (42-121); ANION GAP 11 (8-16); ASPARTATE AMINO TRANSFERASE 20 IU/L (15-46); BILIRUBIN,INDIRECT 0.3 mg/dl (0-1.1); BILIRUBIN,TOTAL 0.3 mg/dl (0.2-1.3); BLOOD UREA NITROGEN 12 mg/dl (7-20); CALCIUM 9.5 mg/dl (8.4-10.2); CARBON DIOXIDE 29 mmol/L (21-31); CHLORIDE 105 mmol/L (97-110); CREATININE 0.84 mg/dl (0.61-1.24); GLUCOSE 92 mg/dl (70-220); POTASSIUM 4.1 mmol/L (3.5-5.1); SODIUM 141 mmol/L (135-144); TOTAL PROTEIN 7.5 g/dl (6.1-8.1)
[2016-12-05 11:31] LABS: INR 0.91; PROTIME 12.3 Sec (12.2-14.2)
[2016-12-05 11:32] LABS: PARTIAL THROMBOPLASTIN TIME 30.4 Sec (25.0-35.0)
[2016-12-05 11:49] LABS: TROPONIN-I < 0.012 ng/ml (0.00-0.12)
[2016-12-05 12:58] VITALS: BP 115/73; PULSE 54; RESP 14
--- NOTE | 2016-12-05 13:40 | ERA ---
ER Documentation Chief Complaint Date/Time DATE: 12/05/16 TIME: 13:37 Chief Complaint AP, CP, BRIGHT RED BLOOD IN STOOL X10 DAYS. HPI This is a 56-year-old male who speaks Turkish only. An debit agent was used. The patient has multiple complaints. He states that he may have had a cardiac evaluation or procedure approximately 6 months ago. He does not know the name of this but hands me paper that is consistent with cardiac cath. He states that that he placed something in his heart but they never told him what this was. The patient also describes chest pain that is substernal and pressure- like for approximately 10 days. He also describes diffuse generalized abdominal cramping and blood in his stools. The blood is with stool. He denies any hematemesis or melena. ROS All systems reviewed and are negative except as per history of present illness. Medications Home Meds Reported Medications Atorvastatin* (Atorvastatin*) 80 Mg Tablet, 80 MG PO QHS, #30 TAB 07/02/16 Aspirin* (Aspirin* Chew) 81 Mg Tab.chew, 81 MG PO DAILY, TAB.CHEW 07/02/16 Clopidogrel Bisulfate (Clopidogrel) 75 Mg Tablet, 75 MG PO DAILY, #30 TAB 07/02/16 Allergies Allergies: Coded Allergies: No Known Allergy (Unverified , 12/05/16) PMhx/Soc History of Surgery: No (heart cath 05/11 [place]) Anesthesia Reaction: No Hx Neurological Disorder: No Hx Respiratory Disorders: No Hx Cardiac Disorders: Yes (CAD) Hx Psychiatric Problems: No Hx Miscellaneous Medical Probl: No Hx Alcohol Use: No Hx Substance Use: No Hx Tobacco Use: No Smoking Status: Never smoker FmHx Family History: No diabetes Physical Exam Vitals Vital Signs Date Time Temp Pulse Resp B/P Pulse Ox O2 Delivery O2 Flow Rate FiO2 12/05/16 12:58 54 14 115/73 100 Room Air 12/05/16 11:17 58 15 137/73 100 Room Air 12/05/16 09:51 98.4 85 16 134/86 98 Physical Exam General: Well developed, well nourished, no acute distress Head: Normocephalic, atraumatic. Eyes: Pupils equally reactive, EOM intact ENT: Moist mucous membranes Neck: Supple, no lymphadenopathy Respiratory: Lungs clear bilaterally, no distress Cardiovascular: RRR, no murmurs, rubs, or gallops Abdominal: Soft, Mild diffuse tenderness without rebound or guarding : Deferred MSK: No edema, no unilateral swelling, 5/5 strength Neurologic: Alert and oriented, moving all extremities, normal speech, no focal weakness, no cerebellar signs Skin: No rash Psych: Normal mood Result Diagram: 12/05/16 1050 12/05/16 1050 Results 24 hrs Laboratory Tests Test 12/05/16 10:50 White Blood Count 6.110^3/ul Red Blood Count 4.8210^6/ul Hemoglobin 16.0g/dl Hematocrit 47.2% Mean Corpuscular Volume 97.9fl Mean Corpuscular Hemoglobin 33.2pg Mean Corpuscular Hemoglobin Concent 33.9g/dl Red Cell Distribution Width 14.1% Platelet Count 51521^3/UL Mean Platelet Volume 10.0fl Neutrophils % 57.2% Lymphocytes % 30.0% Monocytes % 9.3% Eosinophils % 2.5% Basophils % 0.8% Nucleated Red Blood Cells % 0.0/100WBC Neutrophils # (Manual) 3.510^3/ul Lymphocytes # 1.810^3/ul Monocytes # 0.610^3/ul Eosinophils # 0.210^3/ul Basophils # 0.110^3/ul Nucleated Red Blood Cells # 0.010^3/ul Prothrombin Time 12.3Sec Prothrombin Time Ratio 1.0 INR International Normalized Ratio 0.91 Activated Partial Thromboplast Time 30.4Sec Sodium Level 141mmol/L Potassium Level 4.1mmol/L Chloride Level 105mmol/L Carbon Dioxide Level 29mmol/L Anion Gap 11 Blood Urea Nitrogen 12mg/dl Creatinine 0.84mg/dl Glucose Level 92mg/dl Calcium Level 9.5mg/dl Total Bilirubin 0.3mg/dl Direct Bilirubin 0.00mg/dl Indirect Bilirubin 0.3mg/dl Aspartate Amino Transf (AST/SGOT) 20IU/L Alanine Aminotransferase (ALT/SGPT) 28IU/L Alkaline Phosphatase 67IU/L Troponin I < 0.012ng/ml Total Protein 7.5g/dl Albumin 4.4g/dl Globulin 3.10g/dl Albumin/Globulin Ratio 1.41 Lipase 64U/L Current Medications Medications (Trade) Dose Ordered Sig/Jayne Route PRN Reason Start Time Stop Time Status Last Admin Dose Admin Sodium Chloride (NS) 500 ml @ 500 mls/hr Q1H STAT IV 12/05/16 10:25 12/05/16 11:24 DC 12/05/16 10:59 Morphine Sulfate (morphine) 4 mg ONCE STAT IV 12/05/16 10:25 12/05/16 10:27 DC 12/05/16 11:06 Ondansetron HCl (Zofran Inj) 4 mg ONCE STAT IV 12/05/16 10:25 12/05/16 10:27 DC 12/05/16 11:00 Procedures/MDM EKG, MONITORS, & DIAGNOSTIC IMAGING: EKG: I reviewed and interpreted a 12-lead EKG. Rhythm: Normal sinus rhythm Ectopy: None Intervals: No abnormalities ST segments: No elevations or depressions T waves: No contiguous inversions Repeat EKG: EKG: I reviewed and interpreted a 12-lead EKG. Rhythm: Normal sinus rhythm Ectopy: None Intervals: No abnormalities ST segments: No elevations or depressions T waves: No contiguous inversions Chest x-ray: I reviewed and interpreted a 1 view of the chest Mediastinum: No enlargement Cardiac silhouette: No cardiomegaly Airspace: Clear lung cooney bilaterally without evidence of pneumothorax Bones: No evidence of fracture CT abdomen and pelvis: No evidence of acute intra-abdominal process per radiology LAB INTERPRETATION: Negative troponin, normal hemoglobin MEDICAL DECISION MAKING: The patient's history, physical exam and clinical presentation is concerning for possible cardiogenic etiology and acute coronary syndrome. Additionally the patient is having abdominal cramping and rectal bleeding possibly secondary to diverticular disease. No signs or symptoms concerning for upper GI hemorrhage. This appears to be a subacute process. Based on the patient's clinical exam and history and risk factors, I have a much lower clinical concern for pulmonary embolism, acute aortic dissection, pneumothorax, pneumonia, cardiac tamponade HEART Score: 5 MACE Rate: 16.6 percent Shared Decision Making: We had a conversation regarding risk stratification, MACE rate, and the risks, benefits, alternatives of disposition planning options. Disposition planning: Given recent cath strong suspicion for possible cardiac etiology. Hospitalization necessary. ER COURSE: The patient took aspirin and Plavix prior to arrival. The patient may have lower GI bleeding secondary to these medications versus diverticular disease. No evidence of aggressive bleeding, no hematochezia here in the emergency room. No indication for transfusion. The patient was given morphine and his pain is well controlled. The patient is pain-free. He is capitated to another facility and is stable for transfer. The patient was informed of this and agreeable to transfer. Benefits outweigh the risks. I kept the patient and/or family informed of laboratory and diagnostic imaging results throughout the emergency room course. DISPOSITION PLAN: Transfer to [facility] CONSULTATION: Accepting care team and consultations: I discussed the current laboratory data, diagnostic imaging and emergency care provided. Admitting team: Dr. Graf Admitting team indication: Insurance directed Departure Diagnosis: Primary Impression: Lower GI bleed Additional Impressions: Generalized abdominal pain Chest pain Qualified Code: R07.9 - Chest pain, unspecified type Condition: Stable RAEGAN ROSE MD Dec 05, 2016 13:40
== END 2016-12-05 15:39 | disposition short-term general hospital (02) ==
LOC: E/R 09:30
DX: K92.2 Gastrointestinal hemorrhage, unspecified (principal); I25.10 Atherosclerotic heart disease of native coronary artery without angina pectoris; R07.9 Chest pain, unspecified; Z79.82 Long term (current) use of aspirin
CPT/HCPCS: 36415; 71010; 74176; 80053; 83690; 84484; 85025; 85610; 85730; 93005; 96374; 96375; J2270; J2405; J7040; Z7502; Z7610

== ENCOUNTER 2017-09-28 12:16 | Day surgery (SDC) | END 2017-09-28 19:41 | disposition home or self-care (01) ==

== ENCOUNTER 2017-12-19 19:49 | Emergency (ER) | END 2017-12-19 21:53 | disposition home or self-care (01) ==

== ENCOUNTER 2017-12-21 10:27 | Day surgery (SDC) | END 2017-12-21 18:57 | disposition home or self-care (01) ==

== ENCOUNTER 2018-01-18 10:36 | Day surgery (SDC) | END 2018-01-18 12:24 | disposition home or self-care (01) ==

== ENCOUNTER 2018-02-08 06:11 | Day surgery (SDC) | END 2018-02-08 14:07 | disposition home or self-care (01) ==

== ENCOUNTER 2018-12-11 08:47 | Emergency (ER) | payer BC ==
[~2018-12-11] VITALS: Ht 170.2 cm; Wt 58.8 kg
[~2018-12-11 08:47] MED LIST changes: -ASPI81TA3 PO; +ASPI81TA52 PO; -ATOR80TA75 PO; +BEN50 PO; -CLOP75TA27 PO; +PRED20TA PO
[2018-12-11 08:50] VITALS: BP 125/78; PULSE 78; RESP 18; Ht 170.2 cm; Wt 58.8 kg
[2018-12-11] MEDS ORDERED: FAMOTIDINE 20 MG TAB PO ONE (09:30)
[2018-12-11] MEDS ORDERED: DIPHENHYDRAMINE 25 MG CAP PO ONE (09:30)
[2018-12-11] MEDS ORDERED: predniSONE 20 MG TAB PO ONE (09:30)
== END 2018-12-11 09:40 | disposition home or self-care (01) ==
LOC: FTE 08:47
DX: T14.8XXA Other injury of unspecified body region, initial encounter (principal); F17.210 Nicotine dependence, cigarettes, uncomplicated; W57.XXXA Bitten or stung by nonvenomous insect and other nonvenomous arthropods, initial encounter; Y92.9 Unspecified place or not applicable; Z79.82 Long term (current) use of aspirin
CPT/HCPCS: J7512; Z7502; Z7610; 99283